=== PATIENT | female | born 1970 | race Caucasian/White ===

== ENCOUNTER → 2021-04-13 | Outpatient (CLI) | payer OTHER, SELFPAY ==
--- NOTE | 2021-04-13 | LES_PTH ---
PATIENT: SHERWIN HAM [facility]#:[id number] AGE/SX: 51/F ROOM: RE04/13/[address]: Dr. Drake Grier MD : [id number] BED: DIS: 04/13/2021 SPEC #: [id number] RECD: 04/13/21 12:11 STATUS: MAURICE REHiral #: [id number] KOMAL: 04/13/21 00:[address]: Drake Grier DEPT: SURGICAL PATHOLOGY RECD BY: James Fournier ENTERED: 04/13/21 12:12 SP TYPE: Lesion OTHR DR: No Primary Care Phys Tissues: Skin of eyelid, NOS Procedures: Surgery Specimen Level IV HEADER OPERATION: Excisional biopsy right upper eyelid PRE-OP DIAGNOSIS: Possible xanthelasma TISSUE SUBMITTED: Right upper eyelid lesion MICROSCOPIC DIAGNOSIS Lesion of right upper eyelid, biopsy: Consistent with xanthelasma. AM:jaswant 04/14/2021 MICROSCOPIC DESCRIPTION Slides are reviewed. GROSS DESCRIPTION Received in fixative is one container labeled with the patient's name and designated RUL. The specimen consists of a piece of dee-white skin ellipse measuring 1.5 x 0.1 cm and up to 0.1 cm in thickness. The specimen is inked, serially sectioned and submitted entirely in one cassette. / SJ:rg 04/13/21 TC:3 CPT: 43537
== END | disposition home or self-care (01) ==
LOC: LABSPEC 10:05
PROVIDERS: Referring Provider Ophthalmology; Visit Provider Ophthalmology
DX: L98.9 Disorder of the skin and subcutaneous tissue, unspecified (principal)
CPT/HCPCS: 88305